=== PATIENT | female | born 1960 | race Hispanic/Latino ===

== ENCOUNTER 2021-03-26 21:13 | Emergency (ER) | payer SELFPAY | END 2021-03-27 02:30 | disposition left against medical advice (07) | LOC: ED 21:13 | DX: M19.90 Unspecified osteoarthritis, unspecified site (principal); Z53.21 Procedure and treatment not carried out due to patient leaving prior to being seen by health care provider; W19.XXXA Unspecified fall, initial encounter; Y93.89 Activity, other specified; Y92.89 Other specified places as the place of occurrence of the external cause; Y99.8 Other external cause status ==

== ENCOUNTER 2021-03-27 09:48 | Emergency (ER) | payer MEDICARE ==
[2021-03-27 13:01] VITALS: BP 112/79
--- NOTE | 2021-03-27 13:01 | Emergency Department Report ---
ED General Adult HPI - General Chief complaint: Extremity Injury, Lower Stated complaint: LT KNEE PAIN Time Seen by Provider: 03/27/21 12:55 Source: patient Mode of arrival: Wheelchair Limitations: No Limitations - History of Present Illness Initial comments: 60-year-old female patient presents with complaints of left knee pain after a twist injury yesterday. Patient denies any loss of sensation in the leg or difficulty moving her knee, however she rates her pain as a 10/10 in severity. She has not tried any OTC medication for symptoms. Patient is also requesting pain medication for chronic degenerative disc disease of her back. She states she is currently following with [facility] and is scheduled for an MRI tomorrow. Severity scale (0 -10): 9 - Related Data Previous Rx's Medication Instructions Recorded Last Taken Type Acetaminophen [Acetaminophen TAB] 1,000 mg PO Q8HR PRN #30 tablet 03/27/21 Unknown Rx Allergies Allergy/AdvReac Type Severity Reaction Status Date / Time ivp dye Allergy Unknown Uncoded 03/27/21 10:28 anti inflammatories AdvReac Unknown Uncoded 03/27/21 10:27 steroids AdvReac Unknown Uncoded 03/27/21 10:26 toradol AdvReac Unknown Uncoded 03/27/21 10:27 ED Review of Systems ROS: Stated complaint: LT KNEE PAIN Other details as noted in HPI ED Past Medical Hx - Medications Home Medications: Home Medications Medication Instructions Recorded Confirmed Last Taken Type Acetaminophen [Acetaminophen TAB] 1,000 mg PO Q8HR PRN #30 tablet 03/27/21 Unknown Rx ED Physical Exam - General Limitations: No Limitations General appearance: alert, in no apparent distress - Head Head exam: Present: atraumatic, normocephalic - Eye Eye exam: Present: normal appearance. Absent: scleral icterus - Respiratory Respiratory exam: Absent: respiratory distress - Cardiovascular Cardiovascular Exam: Present: regular rate - Expanded Lower Extremity Exam Left Knee exam: Present: full ROM, tenderness (MCL and posterior). Absent: swelling, abrasion, laceration, ecchymosis, deformity, crepidus, dislocation, erythema, effusion Lower Leg exam: Present: normal inspection Ankle exam: Present: normal inspection Foot/Toe exam: Present: normal inspection Gait: Positive: antalgic - Neurological Exam Neurological exam: Present: alert, oriented X3 - Psychiatric Psychiatric exam: Present: normal affect, normal mood - Skin Skin exam: Present: warm, dry, intact, normal color. Absent: rash ED Course Vital Signs 03/27/21 03/27/21 10:34 13:00 Temperature 98.2 F 98.0 F Pulse Rate 112 H 104 H Respiratory 18 16 Rate Blood Pressure 123/76 112/79 [Left] O2 Sat by Pulse 97 99 Oximetry ED Medical Decision Making - Radiology Data Radiology results: report reviewed LEFT KNEE 3 VIEW(S) INDICATION / CLINICAL INFORMATION: medial and posterior pain after twist injury COMPARISON: None available. FINDINGS: BONES / JOINT(S): No acute fracture or subluxation. No significant arthritis. SOFT TISSUES: No significant abnormality. ADDITIONAL FINDINGS: None. - Medical Decision Making 60-year-old female patient presents with complaints of left knee pain after a twist injury yesterday. Patient denies any loss of sensation in the leg or difficulty moving her knee, however she rates her pain as a 10/10 in severity. She has not tried any OTC medication for symptoms. Patient is also requesting pain medication for chronic degenerative disc disease of her back. She states she is currently following with [facility] and is scheduled for an MRI tomorrow. X-rays negative for any acute bony abnormalities. Will treat for knee sprain with Eloy wrap and crutches along with rice method. Patient has drug allergy to Toradol, anti-inflammatories and steroids. Patient was reviewed in the [employer], I do suspect drug-seeking behavior today. Recommend she follows up with her eap specialist at [facility] for pain control of her chronic back pain. She is otherwise well-appearing, her vitals within normal is, she is stable for discharge home. Patient also follow-up with her surgeons for her knee pain. Strict return precautions were discussed in detail with patient who verbalizes understanding Critical care attestation.: If time is entered above; I have spent that time in minutes in the direct care of this critically ill patient, excluding procedure time. ED Disposition Clinical Impression: Knee pain Disposition: HOME / SELF CARE / HOMELESS Is pt being admited?: No Condition: Stable Instructions: Acute Knee Pain, Adult Prescriptions: Acetaminophen [Acetaminophen TAB] 1,000 mg PO Q8HR PRN #30 tablet PRN Reason: pain Referrals: [facility] [Provider Group] - 3-5 Days Forms: Work/School Release Form(ED)
[2021-03-27] MEDS ORDERED: HYDROcodone/ACETAMINOPHEN 5-325 MG TAB PO ONE (13:14)
--- NOTE | 2021-03-27 13:57 | XRay Report ---
LEFT KNEE 3 VIEW(S) INDICATION / CLINICAL INFORMATION: medial and posterior pain after twist injury COMPARISON: None available. FINDINGS: BONES / JOINT(S): No acute fracture or subluxation. No significant arthritis. SOFT TISSUES: No significant abnormality. ADDITIONAL FINDINGS: None. Signer Name: Gamal Segovia DO Signed: 03/27/2021 1:53 PM Workstation Name: [id number]
== END 2021-03-27 14:46 | disposition home or self-care (01) ==
LOC: ED 09:48
DX: M25.562 Pain in left knee (principal); Z91.040 Latex allergy status; Z88.6 Allergy status to analgesic agent; Z88.8 Allergy status to other drugs, medicaments and biological substances
CPT/HCPCS: 99284